=== PATIENT | female | born 1980 | race Caucasian/White ===

== ENCOUNTER 2019-08-30 19:59 | Emergency (ER) | payer MEDICARE, OTHER ==
[2019-08-30] MEDS ORDERED: Ondansetron 4 MG Tab.DIS PO ONE (20:35)
--- NOTE | 2019-08-30 20:38 | EDM.PDOC ---
ED HPI GENERAL MEDICAL PROBLEM - General Chief Complaint: Head Injury Stated Complaint: SEVERE HEADACHE Time Seen by Provider: 08/30/19 20:28 - History of Present Illness INITIAL COMMENTS - FREE TEXT/NARRATIVE: HISTORY AND PHYSICAL: History of present illness: Patient is a 39-year-old female presents status post fall which he reportedly dislocated her shoulder this was reduced at another hospital she states she had her head but did not think anything about at that time and now presents with concern of headache. She has associated nausea denies any neck pain or other concern. Review of systems: As per history of present illness and below otherwise all systems reviewed and negative. Past medical history: As per history of present illness and as reviewed below otherwise noncontributory. Surgical history: As per history of present illness and as reviewed below otherwise noncontributory. Social history: No reported history of drug or alcohol abuse. Family history: As per history of present illness and as reviewed below otherwise noncontributory. Physical exam: HEENT: Atraumatic, normocephalic, pupils reactive, negative for conjunctival pallor or scleral icterus, mucous membranes moist, throat clear, neck supple, nontender, trachea midline. Lungs: Clear to auscultation, breath sounds equal bilaterally, chest nontender. Heart: S1S2, regular, negative for clicks, rubs, or JVD. Abdomen: Soft, nondistended, nontender. Negative for masses or hepatosplenomegaly. Negative for costovertebral tenderness. Pelvis: Stable nontender. Genitourinary: Deferred. Rectal: Deferred. Extremities: Shoulder mobilizer noted Neuro: Awake, alert, oriented. Cranial nerves II through XII unremarkable. Cerebellum unremarkable. Motor and sensory unremarkable throughout. Exam nonfocal. Diagnostics: CT brain UA UDS Therapeutics: Zofran 4 mg ODT Impression: #1 head injury #2 concussion Definitive disposition and diagnosis as appropriate pending reevaluation and review of above. head Pain Score (Numeric/FACES): 9 - Related Data Allergies Allergy/AdvReac Type Severity Reaction Status Date / Time Sulfa (Sulfonamide Allergy Other Verified 08/30/19 20:06 Antibiotics) Home Meds: Home Meds ClonazePAM [KlonoPIN] 2 mg PO BEDTIME 08/30/19 [History] DULoxetine [Cymbalta] 60 mg PO DAILY 08/30/19 [History] Gabapentin [Neurontin] 400 mg PO BEDTIME 08/30/19 [History] Past Medical History - Past Health History Medical/Surgical History: Denies Medical/Surgical History Psychiatric History: Reports: Other (See Below) Other Psychiatric History: Night terrors - Past Surgical History HEENT Surgical History: Reports: Tonsillectomy Musculoskeletal Surgical History: Reports: Shoulder Surgery Social & Family History - Family History Family Medical History: Noncontributory - Tobacco Use Smoking Status *Q: Current Every Day Smoker Years of Tobacco use: 20 Packs/Tins Daily: 0.2 - Recreational Drug Use Recreational Drug Use: Yes Drug Use in Last 12 Months: Yes Recreational Drug Type: Reports: Marijuana/Hashish ED ROS GENERAL - Review of Systems Review Of Systems: Comprehensive ROS is negative, except as noted in HPI. ED EXAM, HEAD INJURY - Physical Exam Exam: See Below (See dictation) Course - Vital Signs Last Recorded V/S: Last Vital Signs Temp 36.6 C 08/30/19 20:03 Pulse 86 08/30/19 20:03 Resp 24 H 08/30/19 20:03 BP 137/75 08/30/19 20:03 Pulse Ox 99 08/30/19 20:03 - Orders/Labs/Meds Orders: Active Orders 24 hr Category Date Time Status Head wo Cont [CT] Stat Exams 08/30/19 20:35 Taken CULTURE URINE [RM] Stat Lab 08/30/19 20:30 Received Labs: Laboratory Tests 08/30/19 08/30/19 Range/Units 20:30 20:30 Urine Color YELLOW Urine Appearance CLEAR Urine pH 6.0 (5.0-8.0) Ur Specific Farber 1.020 (1.001-1.035) Urine Protein NEGATIVE (NEGATIVE) mg/dL Urine Glucose (UA) NEGATIVE (NEGATIVE) mg/dL Urine Ketones NEGATIVE (NEGATIVE) mg/dL Urine Occult Blood NEGATIVE (NEGATIVE) Urine Nitrite NEGATIVE (NEGATIVE) Urine Bilirubin NEGATIVE (NEGATIVE) Urine Urobilinogen 0.2 (<2.0) EU/dL Ur Leukocyte Esterase TRACE H (NEGATIVE) Urine RBC 0-1 (0-2/HPF) Urine WBC 0-3 (0-5/HPF) Ur Epithelial Cells OCCASIONAL (NONE-FEW) Urine Bacteria FEW (NEGATIVE) Urine Mucus LIGHT (NONE-MOD) Urine Opiates Screen NEGATIVE (NEGATIVE) Ur Oxycodone Screen NEGATIVE (NEGATIVE) Urine Methadone Screen NEGATIVE (NEGATIVE) Ur Barbiturates Screen NEGATIVE (NEGATIVE) Ur Phencyclidine Scrn NEGATIVE (NEGATIVE) Ur Amphetamine Screen NEGATIVE (NEGATIVE) U Methamphetamines Scrn NEGATIVE (NEGATIVE) U Benzodiazepines Scrn NEGATIVE (NEGATIVE) U Cocaine Metab Screen NEGATIVE (NEGATIVE) U Marijuana (THC) Screen POSITIVE (NEGATIVE) Meds: Medications Discontinued Medications Generic Name Dose Route Start Last Admin Trade Name Freq PRN Reason Stop Dose Admin Ondansetron HCl 4 mg 08/30/19 20:35 08/30/19 20:45 Zofran Odt PO 08/30/19 20:36 Not Given ONETIME ONE Ondansetron HCl 4 mg 08/30/19 20:40 08/30/19 20:45 Zofran IM 08/30/19 20:41 4 mg ONETIME ONE Administration Departure - Departure Time of Disposition: 21:29 Disposition: Home, Self-Care 01 Condition: Good Clinical Impression: Concussion injury of brain - Discharge Information Referrals: PCP,None [Primary Care Provider] - Forms: ED Department Discharge Additional Instructions: The following information is given to patients seen in the emergency department who are being discharged to home. This information is to outline your options for follow-up care. We provide all patients seen in our emergency department with a follow-up referral. The need for follow-up, as well as the timing and circumstances, are variable depending upon the specifics of your emergency department visit. If you don't have a primary care physician on staff, we will provide you with a referral. We always advise you to contact your personal physician following an emergency department visit to inform them of the circumstance of the visit and for follow-up with them and/or the need for any referrals to a consulting specialist. The emergency department will also refer you to a specialist when appropriate. This referral assures that you have the opportunity for followup care with a specialist. All of these measure are taken in an effort to provide you with optimal care, which includes your followup. Under all circumstances we always encourage you to contact your private physician who remains a resource for coordinating your care. When calling for followup care, please make the office aware that this follow-up is from your recent emergency room visit. If for any reason you are refused follow-up, please contact the [facility] emergency department at and asked to speak to the emergency department charge nurse. PATT [facility] [address] [place] [id number] Zofran as prescribed Motrin/Tylenol as directed follow-up primary medical doctor or clinic above return as needed as discussed - My Orders Last 24 Hours: My Active Orders 08/30/19 20:30 CULTURE URINE [RM] Stat 08/30/19 20:35 Head wo Cont [CT] Stat - Assessment/Plan Last 24 Hours: My Active Orders 08/30/19 20:30 CULTURE URINE [RM] Stat 08/30/19 20:35 Head wo Cont [CT] Stat
[2019-08-30] MEDS ORDERED: Ondansetron 4 MG/2 ML SDV IM ONE (20:40)
[2019-08-30] MEDS ORDERED: Ketorolac 60 MG/2 ML SDV IM ONE (21:44)
--- NOTE | 2019-08-30 21:58 | CT ---
INDICATION: Headache 2 days following a fall. COMPARISON: none TECHNIQUE: A CT volumetric acquisition was performed of the brain without IV contrast. FINDINGS: There is no evidence of a subdural or epidural hematoma. There is no evidence of subarachnoid hemorrhage or intraparenchymal bleeding. The CT images reveal a normal appearance of the cerebral ventricles and basal cisterns. There is no evidence of localized tissue infarction or mass effect. There is normal church white matter differentiation. The mastoid air cells and middle ear cavities are clear. The calvarium appears intact. There is normal aeration of the visualized paranasal sinuses. IMPRESSION: Negative head CT. Please note that all CT scans at this facility use dose modulation, iterative reconstruction, and/or weight-based dosing when appropriate to reduce radiation dose to as low as reasonably achievable. Dictated by Washington Donahue MD @ Aug 30 2019 9:45PM Signed by Dr. Washington Donahue @ Aug 30 2019 9:57PM
[2019-08-30] MEDS ORDERED: Sodium Chloride 0.9% 10 ML Syringe FLUSH PRN (22:34)
[2019-08-30] MEDS ORDERED: Sodium Chloride 0.9% 1,000 ML IV ONE (22:34)
--- NOTE | 2019-08-30 23:45 | CR ---
Indication: Injury and pain Technique: Right shoulder 3 views Comparison: None Findings/Impression: Bones: Bone alignment is normal. No acute fracture line evident. There is surgical hardware and postoperative changes present in the humeral neck and inferior glenoid. The surgical screw in the glenoid is fractured. No comparison exams to assess for changes of these findings. Joint spaces: Unremarkable. Soft tissues: Unremarkable. Dictated by Oumar Colvin MD @ Aug 30 2019 11:41PM Signed by Dr. Oumar Colvin @ Aug 30 2019 11:44PM
[2019-08-31 00:27] LABS: BLOOD UREA NITROGEN,BUN 8 mg/dL (7.0-18.0); CHLORIDE,CL 105 mmol/L (98-107); GLUCOSE RANDOM 93 mg/dL (74-106); POTASSIUM,K 3.3 mmol/L (3.5-5.1); SODIUM,NA 140 mmol/L (136-145)
--- NOTE | 2019-08-31 01:03 | CR ---
INDICATION: Pain after injury. COMPARISON: Portable examination from yesterday at 22 53 hours. TECHNIQUE: The right shoulder was examined at 0037 hours with AP internal and external rotation and outlet views for a total of three views. FINDINGS: The osseous structures remain in anatomic alignment without fracture or dislocation. There is continued anatomic alignment of the humeral head and glenoid. Again seen is a screw placed in the inferior aspect of the glenoid labrum with a fracture of the tip of the screw. The head and a portion of the shaft may project into the soft tissues anterior to the glenoid labrum. Suture anchors are again seen adjacent to tunnels in the surgical neck of the humerus. The acromioclavicular joint is normal in appearance. The visualized chest is clear. IMPRESSION: No sign of fracture or dislocation. Fracture of the inferior glenoid labral screw with probable obstruction of the head and a portion of the shaft of the screw into the soft tissues anterior to the glenoid labrum. Suture anchors and tunnels seen in the area of the surgical neck of the humerus. Dictated by Chan Leija MD @ Aug 31 2019 12:56AM Signed by Dr. Chan Leija @ Aug 31 2019 1:01AM
--- NOTE | 2019-08-31 01:29 | CT ---
Indication: Fall, injury and pain. Technique: CT right shoulder without contrast. Comparison: None. Findings: No sign of acute fracture or dislocation. Posttraumatic or postoperative changes are present in the humeral neck and inferior glenoid. A single hardware screw fixating the inferior glenoid is fractured. Joint spaces and soft tissues are unremarkable. Impression: No sign of acute injury in the right shoulder. Please note that all CT scans at this facility use dose modulation, iterative reconstruction, and/or weight-based dosing when appropriate to reduce radiation dose to as low as reasonably achievable. Dictated by Oumar Colvin MD @ Aug 31 2019 1:20AM Signed by Dr. Oumar Colvin @ Aug 31 2019 1:27AM
== END 2019-08-31 01:47 | disposition home or self-care (01) ==
LOC: MW.ED 19:59
DX: S06.0X0A Concussion without loss of consciousness, initial encounter (principal); Z88.2 Allergy status to sulfonamides; F17.210 Nicotine dependence, cigarettes, uncomplicated; W19.XXXA Unspecified fall, initial encounter
CPT/HCPCS: 36415; 70450; 73030; 73200; 80053; 80305; 81001; 85025; 87086; 93005; 96360; 96361; 96372; 99285; J1885; J2405; J7030